=== PATIENT | female | born 1945 | race Two or more races ===

== ENCOUNTER 2024-12-02 09:54 | Inpatient (IN) | payer OTHER ==
[~2024-12-02] VITALS: Ht 157.5 cm; Wt 74.8 kg
[2024-12-02] MEDS ORDERED: LEVOTHYROXINE25 MCG (10:05)
[2024-12-02] MEDS ORDERED: COZAAR25 MG (10:05)
[2024-12-02 13:34] LABS: MEAN CORPUSCULAR HEMOGLOBIN 19.8 pg (27.00-32.0); MEAN CORPUSCULAR HGB CONC 29.8 g/dl (32.0-36.0); RED BLOOD COUNT 3.28 M/uL (4.00-6.00)
[2024-12-02 13:35] LABS: HEMATOCRIT 21.9 % (36.0-45.00); MEAN CELL VOLUME 66.8 fL (80.00-100.00); PLATELET COUNT 577 K/uL (150-450); RED CELL DISTRIBUTION WIDTH 18.6 % (11.5-14.5)
[2024-12-02 13:41] LABS: HEMOGLOBIN 6.5 g/dL (12.0-15.00)
[2024-12-02 13:51] LABS: INR 1.05; PARTIAL THROMBOPLASTIN TIME 20.4 SECONDS (22.0-34.0); PROTHROMBIN TIME 11.4 SECONDS (9.0-11.5)
[2024-12-02 13:53] LABS: ALBUMIN 2.8 gm/dL (3.4-5.0); BILIRUBIN TOTAL 0.45 mg/dL (0.3-1.2); CALCIUM 8.7 mg/dL (8.5-10.1); CREATININE SERUM 0.83 mg/dL (0.55-1.02); GFR 66.31; GLOBULINA 4.1 G/DL (2.4-3.5); POTASSIUM 3.84 mEq/L (3.5-5.1); TOTAL PROTEIN 6.9 gm/dL (6.4-8.2)
[2024-12-02 14:18] LABS: URINE APPEARANCE Clear; URINE BILIRRUBIN Negative (NEGATIVE); URINE BLOOD Negative; URINE COLOR Yellow; URINE GLUCOSE Negative (NEGATIVE); URINE KETONE Negative (NEGATIVE); URINE LEUKOCYTE Negative; URINE NITRATE Negative; URINE PROTEIN Negative (NEGATIVE); URINE UROBILINOGEN 0.2 E.U./dl
[2024-12-02 14:20] LABS: URINE BACTERIA 270.3 uL (0.0-1933); URINE CAST 2.94 uL (0.0-1.40); URINE EPITHELIAL CELLS 15.6 uL (0.0-38.8); URINE RBC 5.1 uL (0.0-20.8)
[2024-12-02] MEDS ORDERED: BARIUM SULFATE 450 ML ORAL.SUSP PO ONE (14:48)
[2024-12-02] MEDS ORDERED: DIPHENHYDRAMINE HCL 50 MG/ML VIAL 1ML IV ONE (15:00)
[2024-12-02] MEDS ORDERED: METHYLPREDNISOLONE SOD SUCC 40 MG VIAL IV ONE (15:00)
[2024-12-02] MEDS ORDERED: RINGERS SOLUTION,LACTATED 1,000 ML IV SCH (16:30)
[2024-12-02] MEDS ORDERED: METHYLPREDNISOLONE SOD SUCC 40 MG VIAL ONE (17:00)
[2024-12-02] MEDS ORDERED: DIPHENHYDRAMINE HCL 50 MG/ML VIAL 1ML ONE (17:00)
[2024-12-02] MEDS ORDERED: FUROsemide 40 MG/4 ML VIAL IV SCH (19:45)
[2024-12-02 20:33] VITALS: BP 121/53
[2024-12-02 21:37] LABS: FERRITIN 3.9 NG/ML (8-252)
[2024-12-03 01:49] VITALS: BP 116/53; O2SAT 95
[2024-12-03] MEDS ORDERED: LEVOTHYROXINE SODIUM 25 MCG TABLET PO SCH (06:00)
[2024-12-03 08:00] VITALS: BP 122/66; O2SAT 99
[2024-12-03] MEDS ORDERED: PANTOPRAZOLE SODIUM 40 MG/VIAL VIAL IV SCH (09:00)
[2024-12-03] MEDS ORDERED: LOSARTAN POTASSIUM 50 MG TABLET PO SCH (09:00)
[2024-12-03 17:25] VITALS: BP 173/74
[2024-12-03 20:45] LABS: MEAN CELL VOLUME 72.1 fL (80.00-100.00); MEAN CORPUSCULAR HGB CONC 31.7 g/dl (32.0-36.0); PLATELET COUNT 501 K/uL (150-450); RED BLOOD COUNT 4.43 M/uL (4.00-6.00); RED CELL DISTRIBUTION WIDTH 21.6 % (11.5-14.5)
[2024-12-03 20:47] LABS: HEMOGLOBIN 10.1 g/dL (12.0-15.00); MEAN CORPUSCULAR HEMOGLOBIN 22.7 pg (27.00-32.0)
[2024-12-03 21:19] LABS: ALBUMIN 2.8 gm/dL (3.4-5.0); BILIRUBIN TOTAL 0.94 mg/dL (0.3-1.2); CALCIUM 9.1 mg/dL (8.5-10.1); CREATININE SERUM 0.91 mg/dL (0.55-1.02); GFR 59.63; GLOBULINA 3.7 G/DL (2.4-3.5); PHOSPHOROUS 3.6 mg/dL (2.5-4.9); POTASSIUM 4.44 mEq/L (3.5-5.1); TOTAL PROTEIN 6.5 gm/dL (6.4-8.2)
[2024-12-04 01:22] VITALS: BP 119/55
[2024-12-04 10:01] VITALS: BP 152/73; O2SAT 98
[2024-12-04 11:22] LABS: FOLIC ACID 17.18 ng/ml (4.78-20)
[2024-12-04 11:31] LABS: ob NEGATIVE (NEGATIVE)
[2024-12-04 16:46] VITALS: BP 148/79
[2024-12-05 03:02] VITALS: BP 142/62; O2SAT 92
[2024-12-05 08:45] VITALS: BP 162/78; O2SAT 95
[2024-12-05] MEDS ORDERED: LEVOTHYROXINE25 MCG PO (11:04)
[2024-12-05] MEDS ORDERED: COZAAR50 MG PO (11:04)
[2024-12-05] MEDS ORDERED: INTEGRA PLUS C1 EACH PO (11:05)
== END 2024-12-05 11:50 | disposition home or self-care (01) | DRG 812 ==
LOC: ER 09:55 → MEDJ 17:59
PROVIDERS: Emergency Medicine; ADMIT Internal Medicine; ATTEND Internal Medicine
PROC: BB24Y0Z Computerized Tomography (CT Scan) of Bilateral Lungs using Other Contrast, Unenhanced and Enhanced (ICD-10-PCS; principal; 2024-12-02)
PROC: BW21YZZ Computerized Tomography (CT Scan) of Abdomen and Pelvis using Other Contrast (ICD-10-PCS; 2024-12-02)
PROC: B246ZZZ Ultrasonography of Right and Left Heart (ICD-10-PCS; 2024-12-02)
PROC: 30233N1 Transfusion of Nonautologous Red Blood Cells into Peripheral Vein, Percutaneous Approach (ICD-10-PCS; 2024-12-03)
DX: D64.89 Other specified anemias (principal); E03.8 Other specified hypothyroidism; I51.7 Cardiomegaly; D75.839 Thrombocytosis, unspecified; R09.89 Other specified symptoms and signs involving the circulatory and respiratory systems